=== PATIENT | male | born 1995 | race Caucasian/White ===

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

== ENCOUNTER 2017-06-12 03:14 | Emergency (ER) | payer SELFPAY ==
[~2017-06-12] VITALS: Ht 172.7 cm; Wt 61.2 kg
[~2017-06-12 03:14] MED LIST changes: +APRESOLINE10 MG PO; +CLINDAMYCIN150 MG PO; +NAPROSYN500 MG PO; +PROZAC20 MG PO; +TRAZODONE50 MG PO
[2017-06-12] MEDS ORDERED: IBU800 MG PO (04:41)
== END 2017-06-12 04:48 | disposition home or self-care (01) ==
LOC: ED 03:14
DX: S52.124A Nondisplaced fracture of head of right radius, initial encounter for closed fracture (principal); Z79.899 Other long term (current) drug therapy; W10.8XXA Fall (on) (from) other stairs and steps, initial encounter; Y93.89 Activity, other specified; Y92.89 Other specified places as the place of occurrence of the external cause; Y99.9 Unspecified external cause status

== ENCOUNTER 2017-06-22 08:58 | Emergency (ER) | payer MEDICAID ==
[~2017-06-22] VITALS: Wt 63.5 kg
[~2017-06-22 08:58] MED LIST changes: +IBU800 MG PO
== END 2017-06-22 09:10 | disposition home or self-care (01) ==
LOC: ED 08:58
DX: S52.121D Displaced fracture of head of right radius, subsequent encounter for closed fracture with routine healing (principal); Z79.899 Other long term (current) drug therapy; X58.XXXD Exposure to other specified factors, subsequent encounter

== ENCOUNTER → 2017-07-05 | Outpatient (CLI) | payer MEDICAID | END | disposition home or self-care (01) | LOC: ORTHO 04:34 | DX: S52.124D Nondisplaced fracture of head of right radius, subsequent encounter for closed fracture with routine healing (principal); X58.XXXD Exposure to other specified factors, subsequent encounter ==

== ENCOUNTER 2018-03-26 18:40 | Emergency (ER) | payer OTHER ==
[~2018-03-26] VITALS: Ht 172.7 cm; Wt 65.8 kg
[2018-03-26] MEDS ORDERED: PROAIR HFA8.5 GM INH (20:16)
[2018-03-26] MEDS ORDERED: PREDNISONE20 M1 PO (20:16)
[2018-03-26] MEDS ORDERED: AVPAK AZITHROM250 MG PO (20:16)
== END 2018-03-26 20:22 | disposition home or self-care (01) ==
LOC: ED 18:40
DX: J20.9 Acute bronchitis, unspecified (principal); Z79.899 Other long term (current) drug therapy

== ENCOUNTER 2019-11-23 12:02 | Emergency (ER) | payer SELFPAY ==
[~2019-11-23] VITALS: Ht 177.8 cm; Wt 63.5 kg
[~2019-11-23 12:02] MED LIST changes: +AVPAK AZITHROM250 MG PO; +ELIMITE 5%60 GM T; +PREDNISONE20 M1 PO; +PROAIR HFA8.5 GM INH
[2019-11-23] MEDS ORDERED: CEPHALEXIN500 M1 PO (12:37)
== END 2019-11-23 12:44 | disposition home or self-care (01) ==
LOC: ED 12:02
DX: L81.8 Other specified disorders of pigmentation (principal); L08.89 Other specified local infections of the skin and subcutaneous tissue; Z79.899 Other long term (current) drug therapy

== ENCOUNTER 2021-11-02 18:55 | Emergency (ER) | payer MEDICAID ==
[~2021-11-02 18:55] MED LIST changes: +CEPHALEXIN500 M1 PO
[2021-11-02 19:59] LABS: HEMATOCRIT 41.3 % (42.0-52.0); MEAN CELL VOLUME 83.1 fl (80.0-94.0); MEAN CORPUSCULAR HGB CONC 36.1 g/dl (33.0-37.0); MEAN PLATELET VOLUME 11.3 fl (9.6-12.3); PLATELET COUNT AUTOMATED 156 10*3/uL (130-400); RED BLOOD COUNT 4.97 10*6/uL (4.50-5.90); RED CELL DISTRI WIDTH 11.1 % (0-14.5); WHITE BLOOD COUNT 4.5 10*3/uL (4.8-10.8)
[2021-11-02 20:15] LABS: ALKALINE PHOSPHATASE 67 U/L (45-117); BUN 12 mg/dl (7-24); CHLORIDE 102 mmol/L (98-107); CREATININE 1.13 mg/dL (0.70-1.30); POTASSIUM 3.2 mmol/L (3.5-5.1); SGOT/AST 20 IU/L (3-35); SGPT/ALT 29 U/L (12-78); SODIUM 135 mmol/L (136-145); TOTAL PROTEIN 7.7 gm/dL (6.4-8.2)
[2021-11-02 20:29] LABS: MANUAL DIFF REFLEX YES
[2021-11-02 20:32] LABS: PLATELET SUFFICIENCY NORMAL (NORMAL); TOTAL CELLS COUNTED 100 #CELLS
[2021-11-02] MEDS ORDERED: K-TAB20 MEQ PO (20:42)
== END 2021-11-02 21:05 | disposition home or self-care (01) ==
LOC: ED 18:55
PROVIDERS: Physician Assistant
DX: U07.1 COVID-19 (principal); Z79.899 Other long term (current) drug therapy

== ENCOUNTER 2023-02-26 14:18 | Emergency (ER) | payer OTHER ==
[~2023-02-26] VITALS: Ht 175.2 cm; Wt 65.8 kg
[~2023-02-26 14:18] MED LIST changes: +K-TAB20 MEQ PO
[2023-02-26] MEDS ORDERED: VIBRAMYCIN100 MG PO (14:34)
== END 2023-02-26 14:43 | disposition home or self-care (01) ==
LOC: ED 14:18
DX: M25.50 Pain in unspecified joint (principal); R11.0 Nausea; R53.83 Other fatigue; R50.9 Fever, unspecified; F32.A Depression, unspecified; Z88.8 Allergy status to other drugs, medicaments and biological substances

== ENCOUNTER 2023-12-17 11:12 | Emergency (ER) | payer BC ==
[~2023-12-17] VITALS: Ht 170.1 cm; Wt 63.5 kg
[~2023-12-17 11:12] MED LIST changes: +VIBRAMYCIN100 MG PO
[2023-12-17 12:00] LABS: BASO % 0.6 % (0.0-1.0); EOS # 0.2 10*3/uL (0.0-0.4); HEMATOCRIT 43.2 % (42.0-52.0); LYMPH # 1.7 10*3/uL (1.3-4.4); LYMPH % 32.3 % (27.0-41.0); MEAN CELL VOLUME 88.7 fl (80.0-94.0); MEAN CORPUSCULAR HGB 30.4 pg (27.0-31.0); MEAN CORPUSCULAR HGB CONC 34.3 g/dl (33.0-37.0); MEAN PLATELET VOLUME 10.7 fl (9.6-12.3); MONO # 0.5 10*3/uL (0.1-1.0); MONO % 8.9 % (3.0-9.0); PLATELET COUNT AUTOMATED 212 10*3/uL (130-400); RED BLOOD COUNT 4.87 10*6/uL (4.50-5.90); RED CELL DISTRI WIDTH 11.4 % (0-14.5); WHITE BLOOD COUNT 5.4 10*3/uL (4.8-10.8)
[2023-12-17 12:20] LABS: BUN 7 mg/dl (9-23); CHLORIDE 107 mmol/L (98-107); POTASSIUM 5.1 mmol/L (3.4-5.1)
[2023-12-17 13:30] LABS: BILIRUBIN Negative (Negative); BLOOD Negative (Negative); CLARITY Clear (Clear); COLOR Yellow (Yellow); GLUCOSE Negative (Negative); KETONE Negative (Negative); LEUKO ESTERASE Negative (Negative); NITRITE Negative (Negative); PH 7.5 (4.5-8.0); SPECIFIC GRAVITY 1.015 (1.001-1.030)
[2023-12-17 13:36] LABS: URINE AMPHETAMINES Negative (1000ng/ml); URINE BARBITURATES Negative (200ng/ml); URINE BENZODIAZEPINES Negative (200ng/ml); URINE CANNABINOIDS (THC) Positive (50ng/ml); URINE COCAINE Negative (300ng/ml); URINE METHADONE Negative (300ng/ml); URINE OPIATES Negative (300ng/ml); URINE PHENCYCLIDINE Negative (25ng/ml)
[2023-12-17 14:10] LABS: BACTERIA TRACE; EPITHELIAL CELLS 0-2; WBC 0-2 wbc/hpf (0-5)
== END 2023-12-17 14:24 | disposition home or self-care (01) ==
LOC: ED 11:12
PROVIDERS: Physician Assistant Medical
DX: R53.83 Other fatigue (principal); R42 Dizziness and giddiness; R11.0 Nausea; H53.8 Other visual disturbances; R00.2 Palpitations; F32.A Depression, unspecified; Z79.899 Other long term (current) drug therapy

== ENCOUNTER 2024-03-09 19:31 | Emergency (ER) | payer BC ==
[~2024-03-09] VITALS: Ht 180.3 cm; Wt 77.1 kg
== END 2024-03-09 21:02 | disposition home or self-care (01) ==
LOC: ED 19:31
DX: B34.9 Viral infection, unspecified (principal); Z20.822 Contact with and (suspected) exposure to COVID-19; G90.9 Disorder of the autonomic nervous system, unspecified; F32.A Depression, unspecified

== ENCOUNTER 2024-08-08 20:43 | Emergency (ER) | payer OTHER ==
[~2024-08-08] VITALS: Ht 172.7 cm; Wt 63.5 kg
[2024-08-08 21:13] LABS: BASO % 0.7 % (0.0-1.0); EOS # 0.1 10*3/uL (0.0-0.4); EOS % 2.4 % (1.0-4.0); HEMATOCRIT 39.3 % (42.0-52.0); MEAN CELL VOLUME 85.6 fl (80.0-94.0); MEAN CORPUSCULAR HGB 30.5 pg (27.0-31.0); MEAN CORPUSCULAR HGB CONC 35.6 g/dl (33.0-37.0); MEAN PLATELET VOLUME 11.1 fl (9.6-12.3); MONO # 0.4 10*3/uL (0.1-1.0); MONO % 7.3 % (3.0-9.0); NEUT % 50.4 % (47.0-73.0); PLATELET COUNT AUTOMATED 196 10*3/uL (130-400); RED BLOOD COUNT 4.59 10*6/uL (4.50-5.90); RED CELL DISTRI WIDTH 11.4 % (0-14.5); WHITE BLOOD COUNT 5.9 10*3/uL (4.8-10.8)
[2024-08-08 21:16] LABS: BILIRUBIN Negative (Negative); BLOOD Negative (Negative); CLARITY Clear (Clear); COLOR Yellow (Yellow); GLUCOSE Negative (Negative); KETONE Negative (Negative); LEUKO ESTERASE Negative (Negative); NITRITE Negative (Negative); UROBILINOGEN 0.2 E.U./dl (0.0-1.0)
[2024-08-08 21:35] LABS: ALKALINE PHOSPHATASE 61 U/L (46-116); BUN 10 mg/dl (9-23); CHLORIDE 104 mmol/L (98-107); LIPASE 33 U/L (12-53); POTASSIUM 3.4 mmol/L (3.4-5.1); SGPT/ALT 16 U/L (5-49); TOTAL PROTEIN 7.1 gm/dL (6.0-8.0)
[2024-08-08 21:45] LABS: BACTERIA 1+
== END 2024-08-09 00:02 | disposition home or self-care (01) ==
LOC: ED 20:43
PROVIDERS: Nurse Practitioner Family
DX: S39.011A Strain of muscle, fascia and tendon of abdomen, initial encounter (principal); X50.0XXA Overexertion from strenuous movement or load, initial encounter; Y93.89 Activity, other specified; Y92.89 Other specified places as the place of occurrence of the external cause; Y99.8 Other external cause status